=== PATIENT | female | born 1945 | race Caucasian/White ===

== ENCOUNTER 2017-02-12 14:04 | Emergency (ER) | payer MEDICARE, OTHER ==
--- NOTE | 2017-02-12 14:13 | ED Physician Documentation ---
Wrist Injury - HISTORIAN Historian: patient - HPI Chief Complaint: Upper Extremity Injury Additional Information: fell and landed on outstretched arm, pain from wrist to elbow. Onset: today Where: home Severity: mild Duration: worse Context: fall Location of Injury: L wrist Modifying Factors: pain on movement Further Comments: no - ROS CONST: no problems GI/: denies: problems urinating NEURO: none CVS/RESP: none LNMP: denies: EYES/ENT: none MS/SKIN/LYMPH: none - PAST HX Past History: none Immunizations: UTD Allergies/Adverse Reactions: Allergies Allergy/AdvReac Type Severity Reaction Status Date / Time Penicillins Allergy Verified 02/12/17 14:16 Home Medications: Ambulatory Orders Medication Instructions Recorded Betamethasone Valerate [Beta-Archana] 60 ml TP 02/12/17 Clopidogrel Bisulfate [Clopidogrel] 75 mg PO 02/12/17 Gabapentin [Neurontin] 300 mg PO TID 02/12/17 Hydrochlorothiazide 12.5 mg PO DAILY 02/12/17 Pentoxifylline 400 mg PO TID 02/12/17 - SOCIAL HX Smoking History: non-smoker Alcohol Use: none Drug Use: none - FAMILY HX Family History: none - REVIEWED ASSESSMENTS Nursing Assessment Reviewed: Yes Vitals Reviewed: Yes Wrist Physical Exam - Physical Exam General Appearance: no acute distress Hand: swelling Wrist: tender anatom. snuff box, pain on axial thumb load, ecchymosis, pain, soft tissue tenderness, swelling Neuro: sensation nml, motor nml Vascular: no vascular compromise Forearm/Elbow/Arm: uninjured above wrist Skin: warm/dry, normal color Head/ENT: nml inspection Neck/Back: nml inspection Resp/CVS: chest non-tender Abdomen: non-tender ED Results Lab/Radiology - Radiology Radiology Impressions: negative frac disloc - Orders Orders: ED Orders Category Date Time Status ELBOW 3 VIEWS [RAD] Stat Exams 02/12/17 14:11 Ordered WRIST 3 VIEWS OR MORE [RAD] Stat Exams 02/12/17 14:11 Ordered Discharge Clincal Impression: Left wrist sprain Qualifiers: Encounter type: initial encounter Qualified Code(s): S63.502A - Unspecified sprain of left wrist, initial encounter Fall Qualifiers: Encounter type: initial encounter Qualified Code(s): W19.XXXA - Unspecified fall, initial encounter Home Medications: Ambulatory Orders Betamethasone Valerate [Beta-Archana] 60 ml TP 02/12/17 Clopidogrel Bisulfate [Clopidogrel] 75 mg PO 02/12/17 Gabapentin [Neurontin] 300 mg PO TID 02/12/17 Hydrochlorothiazide 12.5 mg PO DAILY 02/12/17 Pentoxifylline 400 mg PO TID 02/12/17 Condition: Stable Disposition: 01 HOME, SELF-CARE Decision to Admit: NO Date of Decison to Admit: 02/12/17 Decision Time: 15:07
[2017-02-12] MEDS ORDERED: KETOROLAC TROMETHAMINE 60 MG/2 ML VIAL ONE (14:18)
[2017-02-12] MEDS ORDERED: HYDROcodone /APAP 5/325 1 EACH TABLET PO ONE (14:18)
[2017-02-12] MEDS ORDERED: KETOROLAC TROMETHAMINE 60 MG/2 ML VIAL IM ONE (14:18)
--- NOTE | 2017-02-12 14:58 | Diagnostic Imaging Report ---
SUJIT CARROLL~ [facility] [address] [address] ~ ~ ~ ~ Report Submission Date: Feb 12, 2017 2:55:59 PM CDT Patient ~ Study Name: BASHIR FRANKILN ~ Date: Feb 12, 2017 2:31:11 PM CDT ~ Modality Type: CR Gender: F ~ Description: UPPER EXTREMITY : 45 ~ Institution: [facility] Physician: SUJIT CARROLL ~ ~ ~ ~ Left wrist 3 views Clinical history: Injury the left wrist, complaining pain and swelling . No visible fractures, dislocation or bone destruction. No visible radiopaque foreign bodies Impression: Normal left wrist ~ Electronically signed on Feb 12, 2017 2:55:59 PM CDT by: Kyree CONNOLLY
--- NOTE | 2017-02-12 14:59 | Diagnostic Imaging Report ---
SUJIT CARROLL~ [facility] [address] [facility] [address] ~ ~ ~ ~ Report Submission Date: Feb 12, 2017 2:53:56 PM CDT Patient ~ Study Name: BASHIR FRANKLNI ~ Date: Feb 12, 2017 2:34:43 PM CDT ~ Modality Type: CR Gender: F ~ Description: UPPER EXTREMITY : 45 ~ Institution: [facility] Physician: SUJIT CARROLL ~ ~ ~ ~ Left elbow 3 views Clinical history: Pain and swelling for an incidental, history of fall There are small spurs without visible fracture, dislocation or joint effusion. Impression: Marginal spurs without fractures or joint effusion ~ Electronically signed on Feb 12, 2017 2:53:56 PM CDT by: Kyree CONNOLLY
[2017-02-12 15:20] VITALS: BP 130/68
== END 2017-02-12 15:18 | disposition home or self-care (01) ==
LOC: ED 14:04
DX: S63.502A Unspecified sprain of left wrist, initial encounter (principal); W19.XXXA Unspecified fall, initial encounter; Y93.9 Activity, unspecified; Y99.9 Unspecified external cause status
CPT/HCPCS: 73080; 73110; 99283; J1885; A9270-GY; L3908